=== PATIENT | female | born 1990 | race Caucasian/White ===

== ENCOUNTER 2017-03-03 19:32 | Emergency (ER) | payer OTHER ==
[~2017-03-03] VITALS: Ht 162.6 cm; Wt 88.0 kg
[~2017-03-03 19:32] MED LIST: LEVO500T38 PO; ONDA4TAB7 PO; PHEN-318 PO
[2017-03-03 19:44] VITALS: BP 129/77
--- NOTE | 2017-03-03 20:09 | PHYS DOC ---
General Chief Complaint: EARACHE/EAR PAIN Stated Complaint: RT EAR PAIN Time Seen by MD: 20:05 Source: patient Problems: History of Present Illness Initial Comments Patient here for right ear pain. Patient says his been going on for about a week. She is gradually getting worse, but worse today and she also says that so bad that she can't hear from her right ear. She said she had this about 10 years ago with a cerumen impaction. She's try to use water and peroxide cleaning her ear out his been unable to do so. She's had no fever or chills with this. There is no runny nose or sore throat. There's no chest pain or shortness of breath. She has some nausea with the pain was had no vomiting. She' s been able tolerate by mouth food and fluids without difficulty. There's no history of injury or trauma to the ear. Other than trying to clean the ear out she's done nothing at home for this and notes no factors that increase or decrease any symptoms she might have. Patient's past medical history is remarkable for asthma. She is a nonsmoker and nonuser of ethanol. Allergies: Coded Allergies: amoxicillin (Verified Allergy, Unknown, 04/22/16) Past Medical History Medical History: asthma Surgical History: noncontributory Social History Smoker: non-smoker Alcohol: none Review of Systems Constitutional: no symptoms reported EENTM: see HPI Respiratory: no symptoms reported Cardiovascular: no symptoms reported Gastrointestinal: no symptoms reported Physical Exam General Appearance: WD/WN Ear, Nose, Throat: normal pharynx, other Neck: full range of motion, supple, normal inspection Respiratory: lungs clear, normal breath sounds, no respiratory distress Cardiovascular: regular rate, rhythm, no edema Neurologic/Psychiatric: alert, normal mood/affect, oriented x 3 Skin: normal color, warm/dry Comments Generally this well-developed well-nourished white female, mild to moderately anxious, holding the ear complaining of severe right ear pain. Vitals are as noted. Pertinent finds on physical exam shows the left ear to be clear. Right canal appears to be swollen tight, occluded and TM is difficult to visualize. Patient has pain on evaluation of the ear, but really has no pain to percussion on the tragus or pulling on the pinna. There is no signs of trauma about the year. Nose and throat are clear. Neck is supple without adenopathy or JVD. There 's no meningeal signs. Chest is clear and cardiovascular exams unremarkable. She is anxious but is awake alert oriented and cooperative with exam. Remainder of physical exam is clinically unremarkable. Orders, Labs, Meds Old charts note prior ER visit for UTI and finger laceration. 2200 Patient resting comfortably in the ED. We did attempt to irrigate the ear out with peroxide and water with no real change. On reinspection, there is no new signs of trauma. I really do think the canal is swollen suggestive of otitis externa. There is no obvious cerumen plug. She has no history of swelling or prolonged water exposure. I did go ahead and place an ear wick without difficulty or to facilitate the passage of medication into the canal. I did discuss with them most likely diagnosis of otitis externa. We discussed home care including rest and warm compresses the or. We'll go and prescribe some Cortisporin otic solution as well as Lortab for pain. Hopefully the wick will conduct the Cortisporin. We discussed home which did fall on its own. We will go and give her first doses here in the emergency department prior to discharge night. She voiced understanding need to follow-up with primary care or return to the ER sooner as needed if worsen anyway. She looks stable, in no acute discomfort distress, and okay for discharge home at this time. DIANA HILL MD Mar 03, 2017 20:09
[2017-03-03] MEDS ORDERED: NEOMYCIN/POLYMYXIN/HC OTIC SUSPENSION 10ML BOTTLE. AD ONE (22:30)
[2017-03-03] MEDS ORDERED: HYDROCODONE/APAP 7.5/325MG TABLET. PO ONE (22:30)
== END 2017-03-03 22:30 | disposition home or self-care (01) ==
LOC: ER 19:32
DX: H92.01 Otalgia, right ear (principal); R11.0 Nausea; J45.909 Unspecified asthma, uncomplicated; Z88.1 Allergy status to other antibiotic agents
CPT/HCPCS: 99283

== ENCOUNTER 2017-06-24 13:38 | Emergency (ER) | payer OTHER ==
[~2017-06-24 13:38] MED LIST changes: -LEVO500T38 PO; +LEVO500T59 PO
[2017-06-24 13:40] VITALS: BP 135/75
--- NOTE | 2017-06-24 14:04 | PHYS DOC ---
Past History Past Medical History: No Pertinent History Past Surgical History: No Surgical History Alcohol Use: None Drug Use: None Adult General Chief Complaint Chief Complaint: MULTIPLE COMPLAINTS HPI HPI Patient is a 27-year-old female who is 11 weeks , 2 para 1, who presents with anxiety and insomnia. The patient recently switched her job and is working nights. She hasn't been able to sleep well. She also recently split up from her and also her truck and camper are being repossessed. She had to move in with her parents. She has a little boy a who is about to go to kindergarten. She has been anxious 06/06. She has trouble sleeping. She tosses and turns. She gets up in the middle the night not able to sleep. She is a smoker and she has been smoking more due to her anxiety. Also she has not been taking her vitamins because she left them somewhere and does not have them. Her appetite has not been good and when she takes a bite or 2 she's not able to eat anymore. She is not vomiting. She is concerned for the health of her baby. She thinks she has had some lower abdominal cramping. She has had no discharge or bleeding or spotting. She has had her first OB appointment with Dr. Naqvi and had an ultrasound at 8 weeks that showed a good heartbeat. Her next appointment is due next week. Review of Systems Review of Systems Constitutional: Denies fever or chills [] HENT: Denies nasal congestion or sore throat [] Respiratory: Denies cough or shortness of breath [] GI: Denies abdominal pain, nausea, vomiting, bloody stools or diarrhea [] : Denies dysuria or hematuria [] Musculoskeletal: Denies back pain or joint pain [] Integument: Denies rash or skin lesions [] Allergies Allergies Allergies Coded Allergies Type Severity Reaction Last Updated Verified amoxicillin Allergy Unknown 04/22/16 Yes Physical Exam Physical Exam Constitutional: Well developed, well nourished, no acute distress, non-toxic appearance. Alert, mentating normally, vital signs stable. HENT: Normocephalic, atraumatic, bilateral external ears normal, nose normal. [] Eyes: conjunctiva normal, no discharge. [] Neck: Normal range of motion, no stridor. [] Cardiovascular:Heart rate regular rhythm, no murmur [] Lungs & Thorax: Bilateral breath sounds clear to auscultation [] Abdomen: Bowel sounds normal, soft, no tenderness, no masses, no pulsatile masses. Uterus not palpable. Abdomen exam benign. Skin: Warm, dry, no erythema, no rash. [] Extremities: No tenderness, no cyanosis, no clubbing, ROM intact, no edema. [] Neurologic: Alert and oriented X 3, normal motor function, normal sensory function, no focal deficits noted. [] Psychologic: Affect normal, judgement normal, mood normal. Patient does not appear depressed. She does not appear overtly anxious. She is appropriate with judgment intact. She is interacting well with her little boy who is here with her. Current Patient Data Vital Signs Vital Signs Date Time Temp Pulse Resp B/P (MAP) Pulse Ox O2 Delivery O2 Flow Rate FiO2 06/24/17 13:40 97.8 94 20 100 Room Air EKG EKG [] Radiology/Procedures Radiology/Procedures [] Course & Med Decision Making Course & Med Decision Making Pertinent Labs and Imaging studies reviewed. (See chart for details) 27-year-old female who is 11 weeks , had an ultrasound at 8 weeks with positive heart tones. She is here with anxiety, situational. Also trouble sleeping. We discussed general treatment of anxiety and I advised her to limit stimulants and for anxiety and for the health of her baby to cut back and quit smoking. She has an appointment next week for OB follow-up. For trouble sleeping I recommended Benadryl, but she does not believe that makes her sleepy. I recommended trying doxylamine, [id number] sleep aid, which is also used for nausea and vomiting during . [] Dragon Disclaimer Dragon Disclaimer This chart was dictated in whole or in part using Voice Recognition software in a busy, high-work load, and often noisy Emergency Department environment. It may contain unintended and wholly unrecognized errors or omissions. Departure Departure: Impression: Primary Impression: Anxiety Additional Impression: First trimester Disposition: 01 HOME, SELF-CARE Condition: STABLE Referrals: PCP,UNKNOWN (PCP) Patient Instructions: Anxiety and Panic Attacks, [id number], - Smoking, Smoking Cessation, Tips For Success Additional Instructions: As we discussed, try to avoid nicotine, caffeine, or any other stimulating substances. When you have anxiety, nicotine makes it worse because it is a stimulant. You may try [id number] doxylamine, which is sold as a sleep aid, to help you sleep. This is safe during . You may take an [id number]-[id number] multivitamin until you are able to get your vitamins back. Drink plenty of fluids even if you are not hungry. Keep your follow-up with your OB doctor as we discussed, if you have other symptoms including spotting or bleeding, return to emergency. Problem Qualifiers VIKAS CARNEY MD Jun 24, 2017 14:04
== END 2017-06-24 14:19 | disposition home or self-care (01) ==
LOC: ER 13:38
DX: O99.341 Other mental disorders complicating pregnancy, first trimester (principal); F41.9 Anxiety disorder, unspecified; O26.891 Other specified pregnancy related conditions, first trimester; R10.30 Lower abdominal pain, unspecified; G47.00 Insomnia, unspecified; O99.331 Smoking (tobacco) complicating pregnancy, first trimester; Z88.1 Allergy status to other antibiotic agents; Z3A.11 11 weeks gestation of pregnancy
CPT/HCPCS: 99281

== ENCOUNTER → 2017-08-11 | Outpatient (CLI) | payer OTHER ==
--- NOTE | 2017-08-11 17:03 | RAD ---
Examination: Obstetric ultrasound greater than 14 weeks History: Uterine size discrepancy Comparison: None available Findings Single living intrauterine identified with heart rate of 153 bpm 4 chamber heart is seen 3 vessel CORD seen 1. Insertion, fluid in the bladder, stomach, kidneys, spine, brain are visualized position is breech Cervical length is 4.9 cm Amniotic fluid index is normal measuring 12.9 cm The placenta is in the posterior wall Presently grade is grade 0. Biparietal diameter measures 4.2 cm corresponding to 18 weeks and 5 days. Head circumference measures 16.0 cm corresponding to 18 weeks and 6 days. Abdominal circumference measures 13.2 cm corresponding to 18 weeks and 5 days. Femur length measures 2.8 cm corresponding to 18 weeks and 4 days. Cephalic index 76.3 Head circumference to abdominal circumference ratio 1.2. Femur length biparietal diameter 66.8. Femur length head circumference 17.5. Femur length abdominal circumference 21.3. TCD /abdominal circumference 13.2. LMP 04/06/2017 Clinical age 18 weeks and 1 day with estimated date of delivery by LMP 01/11/2018 Ultrasound age 18 weeks and 5 days with estimated date of delivery by ultrasound 01/07/2018. Estimated weight 254 g +/- 38 g Upper and lower extremity is visualized Impression: Single living intrauterine with heart rate of 153 bpm. Gestational age corresponds to 18 weeks and 5 days with estimated date of delivery by ultrasound 01/07/2018.
== END | disposition home or self-care (01) ==
LOC: US 13:08
PROVIDERS: ATTEND Obstetrics & Gynecology
DX: O32.1XX0 Maternal care for breech presentation, not applicable or unspecified (principal); O26.842 Uterine size-date discrepancy, second trimester; Z3A.18 18 weeks gestation of pregnancy
CPT/HCPCS: 76805

== ENCOUNTER 2017-11-13 07:18 | Emergency (ER) | payer OTHER ==
[~2017-11-13] VITALS: Ht 162.6 cm; Wt 95.0 kg
--- NOTE | 2017-11-13 07:49 | ED.ADGEN ---
Past History Past Medical History: No Pertinent History Past Surgical History: No Surgical History Alcohol Use: None Drug Use: None Adult General Chief Complaint Chief Complaint Sore throat [facility] HPI Patient is a G2, P1 early third trimester female who presents with sore throat described as scratching and painful starting last evening. Patient also reports nasal congestion, rhinorrhea occasional cough for the past several days. No fevers chills, nausea, vomiting, sweats, neck pain, stiffness, rash, painful or difficulty swallowing. No chest pain or shortness of breath. Patient treated 1 month ago for upper respiratory tract infection and bronchospasm with Z-Miguel. Currently on prenatals but does not take any other medications. Patient' s PRODUCTION EXPERT is Dr. Naqvi at [facility]. Denies consultations with . Estimated date of confinement is January 11[] Review of Systems Review of Systems ROS as per HPI. All other systems were reviewed and found to be within normal limits, except as documented in this note. Allergies Allergies Allergies Coded Allergies Type Severity Reaction Last Updated Verified amoxicillin Allergy Unknown 04/22/16 Yes Physical Exam Physical Exam Constitutional: Well developed, well nourished, no acute distress, non-toxic appearance. [] HENT: Normocephalic, atraumatic, bilateral external ears normal, oropharynx moist, sore throat, mild erythema, no exudate. No dysphonia or trismus. [] Eyes: PERRLA, EOMI, conjunctiva normal, no discharge. [] Neck: Normal range of motion, no tenderness, supple, no stridor. No lymphadenopathy. [] Cardiovascular:Heart rate regular rhythm, no murmur. [] Lungs & Thorax: Bilateral breath sounds clear to auscultation. [] Abdomen: Bowel sounds normal, soft, gravid abdomen. [] Skin: Warm, dry. [] Back: No tenderness. [] Extremities: No tenderness. [] Neurologic: Alert and oriented X 3, normal motor function, normal sensory function, no focal deficits noted. [] Psychologic: Affect normal, judgement normal, mood normal. [] Current Patient Data Vital Signs Vital Signs Date Time Temp Pulse Resp B/P (MAP) Pulse Ox O2 Delivery O2 Flow Rate FiO2 11/13/17 08:35 77 20 117/51 (73) 100 Room Air 11/13/17 07:18 97.9 Lab Results Laboratory Tests Test 11/13/17 07:40 Influenza Type A (Rapid) Negative (NEGATIVE) Influenza Type B (Rapid) Negative (NEGATIVE) Group A Streptococcus Rapid Negative (NEGATIVE) Microbiology 11/13/17 Throat Screen - Final, Complete 11/13/17 Throat Culture - Final, Complete EKG EKG [] Radiology/Procedures Radiology/Procedures [] Course & Med Decision Making Course & Med Decision Making Pertinent Labs and Imaging studies reviewed. (See chart for details) [Nontoxic well-appearing.] Final Impression Final Impression [1. Pharyngitis] Problems: Dragon Disclaimer Dragon Disclaimer This electronic medical record was generated, in whole or in part, using a voice recognition dictation system. DAVIDSON ARNOLD DO Nov 13, 2017 07:49
[2017-11-13 08:23] LABS: INFLUENZA A PATIENT NEGATIVE (NEGATIVE); INFLUENZA B PATIENT NEGATIVE (NEGATIVE)
[2017-11-13 08:35] VITALS: BP 117/51
== END 2017-11-13 08:35 | disposition home or self-care (01) ==
LOC: ER 07:18
DX: O99.513 Diseases of the respiratory system complicating pregnancy, third trimester (principal); J02.9 Acute pharyngitis, unspecified; Z88.1 Allergy status to other antibiotic agents
CPT/HCPCS: 87070; 87804; 87880; 99284